=== PATIENT | female | born 1955 | race Hispanic/Latino ===

== ENCOUNTER 2022-04-11 13:02 | Inpatient (IN) | payer MEDICARE ==
[2022-04-11 13:45] LABS: #Lymphocytes 1.8 thou/uL (1.20-3.40); #Monocytes 0.5 thou/uL (0.11-0.59); #Neutrophils 12.7 thou/uL (1.40-6.50); %Basophils 0.2 % (0.0-1.0); %Eosinophils 0.2 % (0.0-10.0); %Lymphocytes 11.6 % (21.0-51.0); %Monocytes 3.4 % (0.0-10.0); %Neutrophils 84.5 % (42.0-75.0); Mean Corpuscular HGB CONC 31.6 g/dL (32.0-36.0); Mean Corpuscular Hemoglobin 29.7 pg (27.0-31.0); Mean Corpuscular Volume 93.8 fl (78.0-98.0); Mean Platelet Volume 8.5 fL (7.4-10.4); Platelet Count 261 thou/uL (130-400); RBC Distribution Width 13.4 % (11.5-14.5); Red Blood Cell (RBC) Count 4.72 mill/uL (4.20-5.40); White Blood Cell (WBC) Count 15.1 thou/uL (4.8-10.8)
[2022-04-11] MEDS ORDERED: Iopamidol-370 76% 500 ML 1 ML ONE (13:58)
[2022-04-11 14:09] LABS: Anion Gap 27 mmol/L (10-20); BUN (Urea Nitrogen) 14 mg/dL (9.8-20.1); Calc. Creatinine Clearance 0 mL/min (70-130); Carbon Dioxide 16 mmol/L (23-31); Chloride 100 mmol/L (98-107); Potassium 4.5 mmol/L (3.5-5.1); Sodium 138 mmol/L (136-145)
[2022-04-11 14:10] LABS: ALT (SGPT) 9 U/L (8-55); AST (SGOT) 17 U/L (5-34); Albumin 4.2 g/dL (3.4-4.8); Alkaline Phosphatase 70 U/L (40-110); Bilirubin, Total 0.6 mg/dL (0.2-1.2); Calcium 10.2 mg/dL (7.8-10.44); Estimated GFR 61; Globulin 3.7 g/dL (2.4-3.5); Glucose 73 mg/dL (80-115); Lipase 38 U/L (8-78); Protein, Total 7.9 g/dL (5.8-8.1)
[2022-04-11 16:14] LABS: SARS-CoV-2 NAA Rapid Test Not Detected (NotDetected)
[2022-04-11] MEDS ORDERED: Azithromycin 500 MG VIAL ONE ×2 (18:09→19:59)
[2022-04-11] MEDS ORDERED: cefTRIAXone\\ROCEPHIN 2 GM VIAL ONE (18:09)
[2022-04-11] MEDS ORDERED: Acetaminophen 500 MG TAB ONE (18:39)
[2022-04-11] MEDS ORDERED: Ibuprofen 200 MG TAB PO PRN (19:28)
[2022-04-11] MEDS ORDERED: Ondansetron PF 4 MG/2 ML Vial IVP PRN (19:28)
[2022-04-11] MEDS ORDERED: Ondansetron ODT 4 MG TAB PO PRN (19:28)
[2022-04-11] MEDS ORDERED: Azithromycin 500 MG in Sodium Chloride 0.9% 250 ML 250 ML IVPB SCH (19:30)
[2022-04-11] MEDS ORDERED: Ketorolac Tromethamine 30 MG/ML VIAL ONE (19:34)
[2022-04-11] MEDS ORDERED: Morphine 4 MG/ML VIAL SLOW IVP SCH (19:45)
[2022-04-11] MEDS ORDERED: Dextrose 50% Abboject 50 ML SYRINGE SLOW IVP PRN (23:12)
[2022-04-11] MEDS ORDERED: HumaLOG 300 UNITS/3 ML VIAL SC PRN ×2 (23:12)
[2022-04-11] MEDS ORDERED: Dextrose 5% in Water 1,000 ML IV PRN (23:12)
[2022-04-11] MEDS: Sodium Chloride 0.9% 1,000 ML IV SCH (23:16)
[2022-04-12] MEDS ORDERED: Morphine 4 MG/ML VIAL SLOW IVP PRN (01:07)
[2022-04-12 03:32] LABS: Bilirubin Negative (Negative); Blood, Urine Negative (Negative); Clarity Clear (Clear); Glucose, Urine (Dipstick) Normal (Negative); Ketone, Urine Greater than 150 mg/dL (Negative); Leukocyte Negative Leu/uL (Negative); Nitrite Negative (Negative); Protein, Urine (Dipstick) Negative (Neg-Trace); Specific Gravity, Urine 1.033 (1.002-1.036); Urobilinogen Normal mg/dL (Less than 2); pH, Urine 5.5 (5.0-9.0)
[2022-04-12 05:34] LABS: #Basophils 0.1 thou/uL (0.0-0.2); #Lymphocytes 1.4 thou/uL (1.20-3.40); #Monocytes 0.6 thou/uL (0.11-0.59); #Neutrophils 14.3 thou/uL (1.40-6.50); %Basophils 0.4 % (0.0-1.0); %Eosinophils 0.1 % (0.0-10.0); %Lymphocytes 8.6 % (21.0-51.0); %Monocytes 3.6 % (0.0-10.0); %Neutrophils 87.3 % (42.0-75.0); Hemoglobin 11.5 g/dL (12.0-16.0); Mean Corpuscular HGB CONC 31.2 g/dL (32.0-36.0); Mean Corpuscular Hemoglobin 29.1 pg (27.0-31.0); Mean Corpuscular Volume 93.4 fl (78.0-98.0); Mean Platelet Volume 8.4 fL (7.4-10.4); Platelet Count 242 thou/uL (130-400); RBC Distribution Width 13.7 % (11.5-14.5); Red Blood Cell (RBC) Count 3.94 mill/uL (4.20-5.40); White Blood Cell (WBC) Count 16.4 thou/uL (4.8-10.8)
[2022-04-12 05:50] LABS: Anion Gap 22 mmol/L (10-20); BUN (Urea Nitrogen) 12 mg/dL (9.8-20.1); Calc. Creatinine Clearance 88 mL/min (70-130); Calcium 8.8 mg/dL (7.8-10.44); Carbon Dioxide 17 mmol/L (23-31); Chloride 108 mmol/L (98-107); Estimated GFR 61; Glucose 140 mg/dL (80-115); Potassium 4.6 mmol/L (3.5-5.1); Sodium 142 mmol/L (136-145)
[2022-04-12 06:13] LABS: Legionella Urinary Ag Negative (Negative); Strep pneumo Urine Ag NEGATIVE (NEGATIVE)
[2022-04-12] MEDS: Sodium Chloride 0.9% 1,000 ML IV SCH ×3 (06:37→19:47)
[2022-04-12] MEDS: Acetaminophen 500 MG TAB PO PRN (08:26)
[2022-04-12] MEDS: Enoxaparin Sodium 40 MG/0.4 ML SYRINGE SC SCH (08:29)
[2022-04-12] MEDS: cefTRIAXone\\ROCEPHIN 2 GM in Sodium Chloride 0.9% 100 ML IVPB SCH (18:24)
[2022-04-13] MEDS ORDERED: Doxycycline 100 MG in Sodium Chloride 0.9% 100 ML IVPB SCH (02:30)
[2022-04-13] MEDS: Benzonatate 100 MG CAP PO PRN ×2 (04:32→22:00)
[2022-04-13 05:03] LABS: #Lymphocytes 1.3 thou/uL (1.20-3.40); #Monocytes 0.6 thou/uL (0.11-0.59); #Neutrophils 8.7 thou/uL (1.40-6.50); %Basophils 0.1 % (0.0-1.0); %Eosinophils 0.3 % (0.0-10.0); %Lymphocytes 12.1 % (21.0-51.0); %Monocytes 5.7 % (0.0-10.0); %Neutrophils 81.8 % (42.0-75.0); Hemoglobin 10.2 g/dL (12.0-16.0); Mean Corpuscular HGB CONC 31.5 g/dL (32.0-36.0); Mean Corpuscular Hemoglobin 29.3 pg (27.0-31.0); Mean Corpuscular Volume 92.8 fl (78.0-98.0); Mean Platelet Volume 8.5 fL (7.4-10.4); Platelet Count 208 thou/uL (130-400); RBC Distribution Width 13.6 % (11.5-14.5); Red Blood Cell (RBC) Count 3.48 mill/uL (4.20-5.40); White Blood Cell (WBC) Count 10.7 thou/uL (4.8-10.8)
[2022-04-13 05:58] LABS: ALT (SGPT) 8 U/L (8-55); AST (SGOT) 11 U/L (5-34); Albumin 3.1 g/dL (3.4-4.8); Alkaline Phosphatase 49 U/L (40-110); Anion Gap 12 mmol/L (10-20); BUN (Urea Nitrogen) 9 mg/dL (9.8-20.1); Bilirubin, Total 0.4 mg/dL (0.2-1.2); Calc. Creatinine Clearance 110 mL/min (70-130); Calcium 8.6 mg/dL (7.8-10.44); Carbon Dioxide 23 mmol/L (23-31); Chloride 109 mmol/L (98-107); Estimated GFR 79; Globulin 2.7 g/dL (2.4-3.5); Glucose 114 mg/dL (80-115); Potassium 3.6 mmol/L (3.5-5.1); Protein, Total 5.8 g/dL (5.8-8.1); Sodium 140 mmol/L (136-145)
[2022-04-13] MEDS: Enoxaparin Sodium 40 MG/0.4 ML SYRINGE SC SCH (08:42)
[2022-04-13] MEDS: Doxycycline 100 MG in Sodium Chloride 0.9% 100 ML IVPB SCH ×2 (08:42→21:24)
[2022-04-13] MEDS ORDERED: Metoclopramide HCl 10 MG/2 ML VIAL IVP SCH (09:45)
[2022-04-13] MEDS: HYDROcodone/Acetaminophen 5/325 mg Tablet PO PRN ×2 (10:52→21:24)
[2022-04-13] MEDS ORDERED: methylPREDNISolone Sod Succ/PF 125 MG/2 ML VIAL IVP SCH (11:00)
[2022-04-13] MEDS ORDERED: SUMAtriptan Succinate 25 MG TAB PO SCH (14:45)
[2022-04-13 15:28] VITALS: BMI 40.7
[2022-04-13] MEDS ORDERED: Ketorolac Tromethamine 30 MG/ML VIAL IVP SCH (17:00)
[2022-04-13] MEDS ORDERED: Promethazine HCl 12.5 MG in Sodium Chloride 0.9% 50 ML IVPB SCH (17:30)
[2022-04-13] MEDS: cefTRIAXone\\ROCEPHIN 2 GM in Sodium Chloride 0.9% 100 ML IVPB SCH (18:21)
[2022-04-14] MEDS: HYDROcodone/Acetaminophen 5/325 mg Tablet PO PRN ×3 (02:19→18:09)
[2022-04-14 06:07] LABS: #Lymphocytes 1.3 thou/uL (1.20-3.40); #Monocytes 0.5 thou/uL (0.11-0.59); #Neutrophils 9.4 thou/uL (1.40-6.50); %Basophils 0.1 % (0.0-1.0); %Eosinophils 0.1 % (0.0-10.0); %Lymphocytes 11.8 % (21.0-51.0); %Monocytes 4.8 % (0.0-10.0); %Neutrophils 83.2 % (42.0-75.0); Hemoglobin 10.7 g/dL (12.0-16.0); Mean Corpuscular HGB CONC 31.9 g/dL (32.0-36.0); Mean Corpuscular Hemoglobin 29.8 pg (27.0-31.0); Mean Corpuscular Volume 93.5 fl (78.0-98.0); Mean Platelet Volume 8.7 fL (7.4-10.4); Platelet Count 229 thou/uL (130-400); RBC Distribution Width 13.7 % (11.5-14.5); White Blood Cell (WBC) Count 11.3 thou/uL (4.8-10.8)
[2022-04-14 06:29] LABS: ALT (SGPT) 8 U/L (8-55); AST (SGOT) 12 U/L (5-34); Alkaline Phosphatase 57 U/L (40-110); Anion Gap 12 mmol/L (10-20); BUN (Urea Nitrogen) 12 mg/dL (9.8-20.1); Bilirubin, Total 0.3 mg/dL (0.2-1.2); Calc. Creatinine Clearance 112 mL/min (70-130); Calcium 8.9 mg/dL (7.8-10.44); Carbon Dioxide 23 mmol/L (23-31); Chloride 111 mmol/L (98-107); Estimated GFR 81; Globulin 2.9 g/dL (2.4-3.5); Glucose 121 mg/dL (80-115); Protein, Total 5.9 g/dL (5.8-8.1); Sodium 142 mmol/L (136-145)
[2022-04-14] MEDS ORDERED: Nystatin Ointment 15 GM TUBE TOP SCH (09:00)
[2022-04-14] MEDS: Doxycycline 100 MG in Sodium Chloride 0.9% 100 ML IVPB SCH ×2 (10:15→21:20)
[2022-04-14] MEDS: Enoxaparin Sodium 40 MG/0.4 ML SYRINGE SC SCH (10:16)
[2022-04-14] MEDS: GUAIFENESIN SF SOLN 200 MG/10 ML UDCUP PO PRN (10:16)
[2022-04-14] MEDS: diphenhydrAMINE 25 MG CAP PO SCH ×2 (13:31→18:09)
[2022-04-14] MEDS: Prochlorperazine Edisylate 10 MG in Sodium Chloride 0.9% 50 ML IVPB SCH ×2 (13:31→18:09)
[2022-04-14] MEDS: Benzonatate 100 MG CAP PO PRN (18:09)
[2022-04-14] MEDS: cefTRIAXone\\ROCEPHIN 2 GM in Sodium Chloride 0.9% 100 ML IVPB SCH (19:10)
[2022-04-15] MEDS: Prochlorperazine Edisylate 10 MG in Sodium Chloride 0.9% 50 ML IVPB SCH ×2 (01:37→05:20)
[2022-04-15] MEDS: diphenhydrAMINE 25 MG CAP PO SCH ×2 (01:37→05:20)
[2022-04-15] MEDS: Benzonatate 100 MG CAP PO PRN ×3 (04:59→20:48)
[2022-04-15 05:31] LABS: #Lymphocytes 2.3 thou/uL (1.20-3.40); #Monocytes 0.5 thou/uL (0.11-0.59); #Neutrophils 6.9 thou/uL (1.40-6.50); %Basophils 0.1 % (0.0-1.0); %Eosinophils 0.2 % (0.0-10.0); %Lymphocytes 23.3 % (21.0-51.0); %Neutrophils 71.4 % (42.0-75.0); Hemoglobin 11.5 g/dL (12.0-16.0); Mean Corpuscular HGB CONC 30.6 g/dL (32.0-36.0); Mean Corpuscular Hemoglobin 28.5 pg (27.0-31.0); Mean Corpuscular Volume 93.2 fl (78.0-98.0); Mean Platelet Volume 8.4 fL (7.4-10.4); Platelet Count 284 thou/uL (130-400); RBC Distribution Width 13.8 % (11.5-14.5); Red Blood Cell (RBC) Count 4.04 mill/uL (4.20-5.40); White Blood Cell (WBC) Count 9.7 thou/uL (4.8-10.8)
[2022-04-15 05:48] LABS: ALT (SGPT) 13 U/L (8-55); AST (SGOT) 17 U/L (5-34); Albumin 3.3 g/dL (3.4-4.8); Alkaline Phosphatase 58 U/L (40-110); Anion Gap 15 mmol/L (10-20); BUN (Urea Nitrogen) 11 mg/dL (9.8-20.1); Bilirubin, Total 0.4 mg/dL (0.2-1.2); Calc. Creatinine Clearance 115 mL/min (70-130); Calcium 9.3 mg/dL (7.8-10.44); Carbon Dioxide 22 mmol/L (23-31); Chloride 110 mmol/L (98-107); Estimated GFR 84; Globulin 3.3 g/dL (2.4-3.5); Glucose 93 mg/dL (80-115); Potassium 3.6 mmol/L (3.5-5.1); Protein, Total 6.6 g/dL (5.8-8.1); Sodium 143 mmol/L (136-145)
[2022-04-15] MEDS: Enoxaparin Sodium 40 MG/0.4 ML SYRINGE SC SCH (09:28)
[2022-04-15] MEDS: Doxycycline 100 MG in Sodium Chloride 0.9% 100 ML IVPB SCH ×2 (09:28→20:40)
[2022-04-15] MEDS: HYDROcodone/Acetaminophen 5/325 mg Tablet PO PRN ×3 (09:35→23:08)
[2022-04-15] MEDS ORDERED: Furosemide 20 MG/2 ML VIAL SLOW IVP SCH (13:15)
[2022-04-15] MEDS: GUAIFENESIN SF SOLN 200 MG/10 ML UDCUP PO PRN ×2 (15:06→20:40)
[2022-04-15] MEDS: cefTRIAXone\\ROCEPHIN 2 GM in Sodium Chloride 0.9% 100 ML IVPB SCH (23:09)
[2022-04-16 05:08] LABS: #Eosinphils 0.2 thou/uL (0.0-0.7); #Lymphocytes 1.9 thou/uL (1.20-3.40); #Monocytes 0.6 thou/uL (0.11-0.59); %Basophils 0.1 % (0.0-1.0); %Eosinophils 3.2 % (0.0-10.0); %Lymphocytes 28.6 % (21.0-51.0); %Monocytes 8.5 % (0.0-10.0); %Neutrophils 59.6 % (42.0-75.0); Hemoglobin 10.9 g/dL (12.0-16.0); Mean Corpuscular HGB CONC 31.9 g/dL (32.0-36.0); Mean Corpuscular Hemoglobin 29.6 pg (27.0-31.0); Mean Corpuscular Volume 92.6 fl (78.0-98.0); Mean Platelet Volume 8.1 fL (7.4-10.4); Platelet Count 240 thou/uL (130-400); RBC Distribution Width 13.7 % (11.5-14.5); Red Blood Cell (RBC) Count 3.67 mill/uL (4.20-5.40); White Blood Cell (WBC) Count 6.8 thou/uL (4.8-10.8)
[2022-04-16] MEDS: Acetaminophen 500 MG TAB PO PRN (05:12)
[2022-04-16 05:29] LABS: ALT (SGPT) 14 U/L (8-55); AST (SGOT) 11 U/L (5-34); Albumin 3.1 g/dL (3.4-4.8); Alkaline Phosphatase 51 U/L (40-110); Anion Gap 12 mmol/L (10-20); BUN (Urea Nitrogen) 12 mg/dL (9.8-20.1); Bilirubin, Total 0.4 mg/dL (0.2-1.2); Calc. Creatinine Clearance 113 mL/min (70-130); Carbon Dioxide 26 mmol/L (23-31); Chloride 110 mmol/L (98-107); Estimated GFR 83; Globulin 2.8 g/dL (2.4-3.5); Glucose 87 mg/dL (80-115); Potassium 3.1 mmol/L (3.5-5.1); Protein, Total 5.9 g/dL (5.8-8.1); Sodium 145 mmol/L (136-145)
[2022-04-16] MEDS: Benzonatate 100 MG CAP PO PRN (05:59)
[2022-04-16] MEDS ORDERED: Potassium Chloride 20 MEQ TAB PO SCH ×2 (07:30→14:00)
[2022-04-16] MEDS: Lisinopril 2.5 MG TAB PO SCH (08:28)
[2022-04-16] MEDS: Aspirin 81 mg Enteric Coated Tablet PO SCH (08:28)
[2022-04-16] MEDS: Enoxaparin Sodium 40 MG/0.4 ML SYRINGE SC SCH (08:29)
[2022-04-16] MEDS: Furosemide 40 MG/4 ML VIAL SLOW IVP SCH (08:34)
[2022-04-16] MEDS ORDERED: Furosemide 20 MG/2 ML VIAL SLOW IVP SCH (09:00)
[2022-04-16] MEDS: GUAIFENESIN SF SOLN 200 MG/10 ML UDCUP PO PRN ×2 (11:57→17:35)
[2022-04-16] MEDS: cefTRIAXone\\ROCEPHIN 2 GM in Sodium Chloride 0.9% 100 ML IVPB SCH (17:35)
[2022-04-17] MEDS: Benzonatate 100 MG CAP PO PRN (05:34)
[2022-04-17 05:39] LABS: #Eosinphils 0.4 thou/uL (0.0-0.7); #Lymphocytes 2.1 thou/uL (1.20-3.40); #Monocytes 0.7 thou/uL (0.11-0.59); #Neutrophils 4.9 thou/uL (1.40-6.50); %Basophils 0.2 % (0.0-1.0); %Eosinophils 4.6 % (0.0-10.0); %Lymphocytes 26.1 % (21.0-51.0); %Monocytes 8.4 % (0.0-10.0); %Neutrophils 60.8 % (42.0-75.0); Hemoglobin 11.2 g/dL (12.0-16.0); Mean Corpuscular HGB CONC 32.6 g/dL (32.0-36.0); Mean Corpuscular Hemoglobin 30.1 pg (27.0-31.0); Mean Corpuscular Volume 92.4 fl (78.0-98.0); Platelet Count 246 thou/uL (130-400); RBC Distribution Width 13.8 % (11.5-14.5); Red Blood Cell (RBC) Count 3.71 mill/uL (4.20-5.40)
[2022-04-17 06:03] LABS: ALT (SGPT) 15 U/L (8-55); AST (SGOT) 10 U/L (5-34); Alkaline Phosphatase 47 U/L (40-110); Anion Gap 13 mmol/L (10-20); BUN (Urea Nitrogen) 10 mg/dL (9.8-20.1); Bilirubin, Total 0.4 mg/dL (0.2-1.2); Calc. Creatinine Clearance 122 mL/min (70-130); Carbon Dioxide 27 mmol/L (23-31); Chloride 107 mmol/L (98-107); Estimated GFR 91; Globulin 2.7 g/dL (2.4-3.5); Glucose 84 mg/dL (80-115); Potassium 3.9 mmol/L (3.5-5.1); Protein, Total 5.7 g/dL (5.8-8.1); Sodium 143 mmol/L (136-145)
[2022-04-17] MEDS: Lisinopril 2.5 MG TAB PO SCH (08:01)
[2022-04-17] MEDS: Enoxaparin Sodium 40 MG/0.4 ML SYRINGE SC SCH (08:01)
[2022-04-17] MEDS: Furosemide 40 MG/4 ML VIAL SLOW IVP SCH (08:01)
[2022-04-17] MEDS: Aspirin 81 mg Enteric Coated Tablet PO SCH (08:02)
[2022-04-17] MEDS: GUAIFENESIN SF SOLN 200 MG/10 ML UDCUP PO PRN (08:08)
[2022-04-17 12:00] VITALS: BP 118/60; TEMP 97.7
== END 2022-04-17 13:35 | disposition home or self-care (01) | DRG 871 ==
LOC: ERS 13:02 → OBSVTOIN 18:57 → NEURO 18:57
PROVIDERS: ADMIT Internal Medicine; ATTEND Internal Medicine
DX: A41.9 Sepsis, unspecified organism (principal); I50.31 Acute diastolic (congestive) heart failure; J18.9 Pneumonia, unspecified organism; Z20.822 Contact with and (suspected) exposure to COVID-19; I10 Essential (primary) hypertension; E78.5 Hyperlipidemia, unspecified; R73.03 Prediabetes; Z79.51 Long term (current) use of inhaled steroids; Z79.82 Long term (current) use of aspirin; Z79.890 Hormone replacement therapy; Z79.899 Other long term (current) drug therapy; Z79.84 Long term (current) use of oral hypoglycemic drugs; Z90.710 Acquired absence of both cervix and uterus
CPT/HCPCS: 36415; 36416; 70450; 70551; 71045; 74177; 80048; 80053; 81003; 83605; 83690; 83880; 85025; 87040; 87077; 87086; 87149; 87449; 87899; 93005; 93010; 93306; 94640; 94760; 96374; 96375; J0456; J0696; J0780; J1650; J1885; J1940; J2270; J2550; J2765; J2930; J3490; J7050; J7620; Q9967